=== PATIENT | male | born 2005 | race Caucasian/White ===

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

== ENCOUNTER 2023-08-01 08:15 | Emergency (ER) | payer OTHER ==
[2023-08-01 08:29] VITALS: TEMP 97.6
[2023-08-01 09:21] LABS: Basophils # (A) 0.1 k/uL (0-0.2); Basophils % (A) 1 %; Eosinophils # (A) 0.1 k/uL (0-0.7); Eosinophils % (A) 2 %; HCT 46.3 % (39.0-53.0); HGB 15.5 gm/dL (13.0-17.5); Lymphocytes # (A) 1.9 k/uL (1.0-4.8); Lymphocytes % (A) 30 %; MCH 30.2 pg (25.0-35.0); MCHC 33.5 g/dL (31.0-37.0); Monocytes # (A) 0.5 k/uL (0-1.0); Monocytes % (A) 7 %; Neutrophils # (A) 3.6 k/uL (1.3-7.7); Neutrophils % (A) 57 %; Platelet Count 284 k/uL (150-450); RBC 5.14 m/uL (4.30-5.90); RDW 12.7 % (11.5-15.5); WBC 6.3 k/uL (4.0-11.0)
[2023-08-01 09:32] LABS: ALT 35 U/L (4-49); AST 33 U/L (17-59); African American GFR (CKD) >90 (>60 ml/min/1.73 sqM); Albumin 4.3 g/dL (3.5-5.0); Alkaline Phosphatase 60 U/L (38-126); Amylase 47 U/L (30-110); Anion Gap 10 mmol/L; Blood Urea Nitrogen 13 mg/dL (9-20); Calcium 9.7 mg/dL (8.4-10.2); Carbon Dioxide 26 mmol/L (22-30); Chloride 103 mmol/L (98-107); Glucose 101 mg/dL (74-99); Lipase 124 U/L (23-300); Non-African American GFR(CKD) >90 (>60 ml/min/1.73 sqM); Potassium 4.5 mmol/L (3.5-5.1); Sodium 139 mmol/L (137-145); Total Bilirubin 1.5 mg/dL (0.2-1.3); Total Protein 6.9 g/dL (6.3-8.2)
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
[2023-08-01 11:05] VITALS: BP 118/81; PULSE 105; RESP 58
== END 2023-08-01 10:59 | disposition home or self-care (01) ==
LOC: EC 08:15
DX: K62.5 Hemorrhage of anus and rectum (principal); J45.909 Unspecified asthma, uncomplicated; Z88.0 Allergy status to penicillin; Z88.2 Allergy status to sulfonamides; Z79.899 Other long term (current) drug therapy; V49.40XA Driver injured in collision with unspecified motor vehicles in traffic accident, initial encounter
CPT/HCPCS: 36415; 80053; 82150; 83605; 83690; 85025; 74177; 99284; Q9967

== ENCOUNTER 2023-08-28 21:13 | Observation (INO) | payer OTHER ==
[2023-08-28] MEDS ORDERED: KETOROLAC 15 MG/ML 1 ML VIAL IVP STA (22:03)
[2023-08-28] MEDS ORDERED: SODIUM CHLORIDE 0.9% 1,000 ML IV STA (22:03)
[2023-08-28] MEDS ORDERED: ONDANSETRON 4 MG/2 ML VIAL IVP STA (22:03)
--- NOTE | 2023-08-28 22:42 | ED ---
Abdominal Pain HPI - General Chief Complaint: Abdominal Pain Stated Complaint: Lower abd pain Time Seen by Provider: 08/28/23 21:28 Source: patient Mode of arrival: ambulatory Limitations: no limitations - History of Present Illness Initial Comments: 18 Year-old male with no significant past medical history presented to the ED with a chief complaint of abdominal pain. Patient states last night started to experience diffuse abdominal pain. Patient states pain is waxing and waning in nature. No associated nausea with this. No changes in bowel or bladder habits. No chest pain or shortness of breath. Denies fever or chills. No other complaints. - Related Data Home Medications Medication Instructions Recorded Confirmed Albuterol Inhaler [Ventolin Hfa 2 puff INHALATION RT-Q6H PRN 01/24/19 11/26/22 Inhaler] Ascorbic Acid [Vitamin C] 1,000 mg PO DAILY 11/26/22 11/26/22 Lisdexamfetamine Dimesylate 40 mg PO DAILY 11/26/22 11/26/22 [Vyvanse] Melatonin 15 mg PO HS 11/26/22 11/26/22 Allergies Allergy/AdvReac Type Severity Reaction Status Date / Time cephalexin monohydrate AdvReac Rash/Hives Verified 08/28/23 21:24 [From Keflex] Penicillins AdvReac Rash/Hives Verified 08/28/23 21:24 sulfamethoxazole AdvReac Rash/Hives Verified 08/28/23 21:24 [From Bactrim] trimethoprim [From Bactrim] AdvReac Rash/Hives Verified 08/28/23 21:24 Review of Systems ROS Statement: Those systems with pertinent positive or pertinent negative responses have been documented in the HPI. ROS Other: All systems not noted in ROS Statement are negative. Past Medical History Past Medical History: Asthma, GERD/Reflux Additional Past Medical History / Comment(s): See Dr Ng's H&P, had crystals in recent UA, 00seasonal allergies, EAR INFECTIONS History of Any Multi-Drug Resistant Organisms: None Reported Past Surgical History: Adenoidectomy, Ear Surgery, Tonsillectomy Past Anesthesia/Blood Transfusion Reactions: No Reported Reaction Additional Past Anesthesia/Blood Transfusion Reaction / Comment(s): no hx blood transfusion Past Psychological History: ADD/ADHD Smoking Status: Never smoker Past Alcohol Use History: None Reported Past Drug Use History: None Reported - Past Family History Mother Family Medical History: No Reported History Father Family Medical History: Pulmonary Embolus General Exam Limitations: no limitations General appearance: alert, in no apparent distress Eye exam: Present: normal appearance Respiratory exam: Present: normal lung sounds bilaterally Cardiovascular Exam: Present: regular rate, normal rhythm GI/Abdominal exam: Present: soft (abdominal tenderness to palpation worsen the right lower quadrant. Positive psoas and rovsig sign. ) Neurological exam: Present: alert, oriented X3 Skin exam: Present: warm, dry Course Vital Signs 08/28/23 21:22 Temperature 97.7 F Pulse Rate 97 Respiratory 18 Rate Blood Pressure 124/72 O2 Sat by Pulse 95 Oximetry Medical Decision Making - Medical Decision Making Was pt. sent in by a medical professional or institution (Dr. PA, MERCHANDISER RETAIL REPRESENTATIVE, urgent care, hospital, or custodial...) When possible be specific @ -No Did you speak to anyone other than the patient for history (EMS, parent, family, police, friend...)? What history was obtained from this source @ -No Did you review nursing and triage notes (agree or disagree)? Why? @ -I reviewed and agree with nursing and triage notes Were old charts reviewed (outside hosp., previous admission, EMS record, old EKG, old radiological studies, urgent care reports/EKG's, custodial records)? Report findings @ -No old charts were reviewed Differential Diagnosis (chest pain, altered mental status, abdominal pain women, abdominal pain men, vaginal bleeding, weakness, fever, dyspnea, syncope, headache, dizziness, GI bleed, back pain, seizure, CVA, palpatations, mental health, musculoskeletal)? @ -Differential Abdominal Pain Men: Appendicitis, cholecystitis, diverticulosis, ischemic bowel, pancreatitis, hepatitis, UTI, gastroenteritis, AAA, incarcerated hernia, bowel obstruction, constipation, inflammatory bowel, hepatitis, peptic ulcer disease, splenic infarction, perforated viscus, testicular torsion, this is not meant to be an all-inclusive list EKG interpreted by me (3pts min.). @ -None X-rays interpreted by me (1pt min.). @ -None done CT interpreted by me (1pt min.). @ -CT interpreted by me showing evidence of acute appendicitis. U/S interpreted by me (1pt. min.). @ -None done What testing was considered but not performed or refused? (CT, X-rays, U/S, labs)? Why? @ -None What meds were considered but not given or refused? Why? @ -None Did you discuss the management of the patient with other professionals (professionals i.e. , PA, MERCHANDISER RETAIL REPRESENTATIVE, lab, RT, psych nurse, social director, dairy farm operator, teacher, ship's officer, protective services case worker)? Give summary @ -Case discussed with Dr. Godoy, who accepts admission. Advised clear liquid okay. Was smoking cessation discussed for >3mins.? @ -No Was critical care preformed (if so, how long)? @ -No Were there social determinants of health that impacted care today? How? (Homelessness, low income, unemployed, alcoholism, drug addiction, transportation, low edu. Level, literacy, decrease access to med. care, nursing home, rehab)? @ -No Was there de-escalation of care discussed even if they declined (Discuss DNR or withdrawal of care, Hospice)? DNR status @ -No What co-morbidities impacted this encounter? (DM, HTN, Smoking, COPD, CAD, Cancer, CVA, ARF, Chemo, Hep., AIDS, mental health diagnosis, sleep apnea, mor bid obesity)? @ -None Was patient admitted / discharged? Hospital course, mention meds given and route, prescriptions, significant lab abnormalities, going to OR and other pertinent info. @ -Admission 18-year-old male presenting to the ED with 2 days of abdominal pain and some nausea as well. Laboratory studies reviewed. CBC significant for a white blood cell count 14.4. Neutrophils elevated at 12.1. Chemistry and serology panel unremarkable. CT shows evidence of acute appendicitis without evidence of rupture or abscess formation. Patient will be admitted to surgical services. Undiagnosed new problem with uncertain prognosis? @ -No Drug Therapy requiring intensive monitoring for toxicity (Heparin, Nitro, Insulin, Cardizem)? @ -No Were any procedures done? @ -No Diagnosis/symptom? @ -Acute appendicitis Acute, or Chronic, or Acute on Chronic? @ -Acute Uncomplicated (without systemic symptoms) or Complicated (systemic symptoms)? @ -Complicated Side effects of treatment? @ -No Exacerbation, Progression, or Severe Exacerbation? @ -No Poses a threat to life or bodily function? How? (Chest pain, USA, SC, pneumonia, PE, COPD, DKA, ARF, appy, cholecystitis, CVA, Diverticulitis, Homicidal, Suicidal, threat to staff... and all critical care pts) @ -No - Lab Data Result diagrams: 08/28/23 22:44 08/28/23 22:44 Lab Results 08/28/23 08/28/23 08/28/23 Range/Units 22:44 22:44 22:44 WBC 14.4 H (4.0-11.0) k/uL RBC 5.16 (4.30-5.90) m/uL Hgb 15.8 (13.0-17.5) gm/dL Hct 45.4 (39.0-53.0) % MCV 88.0 (80.0-100.0) fL MCH 30.6 (25.0-35.0) pg MCHC 34.7 (31.0-37.0) g/dL RDW 12.2 (11.5-15.5) % Plt Count 260 (150-450) k/uL MPV 7.7 Neutrophils % 84 % Lymphocytes % 9 % Monocytes % 6 % Eosinophils % 1 % Basophils % 0 % Neutrophils # 12.1 H (1.3-7.7) k/uL Lymphocytes # 1.3 (1.0-4.8) k/uL Monocytes # 0.8 (0-1.0) k/uL Eosinophils # 0.2 (0-0.7) k/uL Basophils # 0.0 (0-0.2) k/uL Sodium 138 (137-145) mmol/L Potassium 4.5 (3.5-5.1) mmol/L Chloride 105 (98-107) mmol/L Carbon Dioxide 23 (22-30) mmol/L Anion Gap 10 mmol/L BUN 12 (9-20) mg/dL Creatinine 0.94 (0.66-1.25) mg/dL Est GFR (CKD-EPI)AfAm >90 (>60 ml/min/1.73 sqM) Est GFR (CKD-EPI)NonAf >90 (>60 ml/min/1.73 sqM) Glucose 101 H (74-99) mg/dL Plasma Lactic Acid Tony 0.9 (0.7-2.0) mmol/L Calcium 9.2 (8.4-10.2) mg/dL Total Bilirubin 1.3 (0.2-1.3) mg/dL AST 22 (17-59) U/L ALT 28 (4-49) U/L Alkaline Phosphatase 60 (38-126) U/L Total Protein 7.1 (6.3-8.2) g/dL Albumin 4.6 (3.5-5.0) g/dL Amylase 55 (30-110) U/L Lipase 126 (23-300) U/L Influenza Type A (PCR) (Not Detectd) Influenza Type B (PCR) (Not Detectd) RSV (PCR) (Not Detectd) SARS-CoV-2 (PCR) (Not Detectd) 08/28/23 Range/Units 22:44 WBC (4.0-11.0) k/uL RBC (4.30-5.90) m/uL Hgb (13.0-17.5) gm/dL Hct (39.0-53.0) % MCV (80.0-100.0) fL MCH (25.0-35.0) pg MCHC (31.0-37.0) g/dL RDW (11.5-15.5) % Plt Count (150-450) k/uL MPV Neutrophils % % Lymphocytes % % Monocytes % % Eosinophils % % Basophils % % Neutrophils # (1.3-7.7) k/uL Lymphocytes # (1.0-4.8) k/uL Monocytes # (0-1.0) k/uL Eosinophils # (0-0.7) k/uL Basophils # (0-0.2) k/uL Sodium (137-145) mmol/L Potassium (3.5-5.1) mmol/L Chloride (98-107) mmol/L Carbon Dioxide (22-30) mmol/L Anion Gap mmol/L BUN (9-20) mg/dL Creatinine (0.66-1.25) mg/dL Est GFR (CKD-EPI)AfAm (>60 ml/min/1.73 sqM) Est GFR (CKD-EPI)NonAf (>60 ml/min/1.73 sqM) Glucose (74-99) mg/dL Plasma Lactic Acid Tony (0.7-2.0) mmol/L Calcium (8.4-10.2) mg/dL Total Bilirubin (0.2-1.3) mg/dL AST (17-59) U/L ALT (4-49) U/L Alkaline Phosphatase (38-126) U/L Total Protein (6.3-8.2) g/dL Albumin (3.5-5.0) g/dL Amylase (30-110) U/L Lipase (23-300) U/L Influenza Type A (PCR) Not Detected (Not Detectd) Influenza Type B (PCR) Not Detected (Not Detectd) RSV (PCR) Not Detected (Not Detectd) SARS-CoV-2 (PCR) Not Detected (Not Detectd) Disposition Clinical Impression: Acute appendicitis Disposition: ADMITTED IP TO THIS HOSP Condition: Good Referrals: Trisha Garg MD [Primary Care Provider] - 1-2 days
[2023-08-28 22:56] LABS: Basophils % (A) 0 %; Eosinophils # (A) 0.2 k/uL (0-0.7); Eosinophils % (A) 1 %; HCT 45.4 % (39.0-53.0); HGB 15.8 gm/dL (13.0-17.5); Lymphocytes # (A) 1.3 k/uL (1.0-4.8); Lymphocytes % (A) 9 %; MCH 30.6 pg (25.0-35.0); MCHC 34.7 g/dL (31.0-37.0); Mean Platelet Volume 7.7; Monocytes # (A) 0.8 k/uL (0-1.0); Monocytes % (A) 6 %; Neutrophils # (A) 12.1 k/uL (1.3-7.7); Neutrophils % (A) 84 %; Platelet Count 260 k/uL (150-450); RBC 5.16 m/uL (4.30-5.90); RDW 12.2 % (11.5-15.5); WBC 14.4 k/uL (4.0-11.0)
[2023-08-28 23:08] LABS: ALT 28 U/L (4-49); AST 22 U/L (17-59); African American GFR (CKD) >90 (>60 ml/min/1.73 sqM); Albumin 4.6 g/dL (3.5-5.0); Alkaline Phosphatase 60 U/L (38-126); Amylase 55 U/L (30-110); Anion Gap 10 mmol/L; Blood Urea Nitrogen 12 mg/dL (9-20); Calcium 9.2 mg/dL (8.4-10.2); Carbon Dioxide 23 mmol/L (22-30); Chloride 105 mmol/L (98-107); Glucose 101 mg/dL (74-99); Lipase 126 U/L (23-300); Non-African American GFR(CKD) >90 (>60 ml/min/1.73 sqM); Potassium 4.5 mmol/L (3.5-5.1); Sodium 138 mmol/L (137-145); Total Bilirubin 1.3 mg/dL (0.2-1.3); Total Protein 7.1 g/dL (6.3-8.2)
--- NOTE | 2023-08-28 23:59 | CT ---
EXAM: CT Abdomen and Pelvis With Intravenous Contrast CLINICAL HISTORY: CT Reason: r/o appy TECHNIQUE: Axial computed tomography images of the abdomen and pelvis with intravenous contrast. CTDI is 36.9 mGy and DLP is 1980.1 mGy-cm. This CT exam was performed using one or more of the following dose reduction techniques: automated exposure control, adjustment of the mA and/or kV according to patient size, and/or use of iterative reconstruction technique. COMPARISON: No relevant prior studies available. FINDINGS: Lung bases: Unremarkable. No mass. No consolidation. ABDOMEN: Liver: Unremarkable. No mass. Gallbladder and bile ducts: Unremarkable. No calcified stones. No ductal dilation. Pancreas: Unremarkable. No mass. No ductal dilation. Spleen: Unremarkable. No splenomegaly. Adrenals: Unremarkable. No mass. Kidneys and ureters: Unremarkable. No solid mass. No hydronephrosis. Stomach and bowel: Unremarkable. No obstruction. No mucosal thickening. PELVIS: Appendix: The appendix is directed medially into the pelvis and dilated to 13 mm with surrounding inflammation characteristic of acute appendicitis. There is a trace amount of free fluid in the pelvis. No signs of rupture or abscess. Bladder: Unremarkable. No mass. Reproductive: Unremarkable as visualized. ABDOMEN and PELVIS: Intraperitoneal space: See above. Bones/joints: No acute fracture. No dislocation. Soft tissues: Unremarkable. Vasculature: Unremarkable. No abdominal aortic aneurysm. Lymph nodes: Unremarkable. No enlarged lymph nodes. IMPRESSION: The appendix is directed medially into the pelvis and dilated to 13 mm with surrounding inflammation characteristic of acute appendicitis. There is a trace amount of free fluid in the pelvis. No signs of rupture or abscess. <MYCVCSECTION> Communications: 08/29/23 00:03 Call Doctor Regarding Appendicitis, called JIMMY Krause on 08/29 00:03 (-05:00)
[2023-08-29] MEDS ORDERED: NALOXONE 0.4 MG/ML 1 ML VIAL IV PRN (00:49)
[2023-08-29] MEDS ORDERED: HYDROmorphone 1 MG/ML 1 ML SYRINGE IVP PRN ×2 (00:50→15:05)
[2023-08-29] MEDS ORDERED: HYDROmorphone 0.5 MG/0.5 ML SYRINGE IVP PRN (00:50)
[2023-08-29] MEDS ORDERED: ONDANSETRON 4 MG/2 ML VIAL IVP PRN ×2 (00:50→15:05)
[2023-08-29] MEDS: SODIUM CHLORIDE 0.9% 1,000 ML IV SCH ×2 (07:43→14:01)
[2023-08-29] MEDS: LEVOFLOXACIN 500MG-D5W PMX 500 MG in DEXTROSE/WATER 1 100ML.BAG IVPB SCH (09:14)
[2023-08-29] MEDS: metroNIDAZOLE-NS PMX 500 MG in SALINE 1 100ML.BAG IVPB SCH ×2 (11:10→17:30)
--- NOTE | 2023-08-29 12:24 | P.GSHP ---
History of Present Illness H&P Date: 08/29/23 CHIEF COMPLAINT: Abdominal pain HISTORY OF PRESENT ILLNESS: This is a 18-year-old male who presented with right lower quadrant abdominal pain 2 days. Patient reports initially the abdominal pain started at his belly button and has moved to the right lower quadrant. On he did have nausea. He denies any fevers. Denies any past surgical history. His computed tomography scan did show evidence of acute appendicitis. Lab work did show leukocytosis. Patient admitted for acute appendicitis. PAST MEDICAL HISTORY: Asthma, GERD, ADHD PAST SURGICAL HISTORY: See below MEDICATIONS: See below ALLERGIES: See below SOCIAL HISTORY: No illicit drug use. REVIEW OF SYSTEMS: CONSTITUTIONAL: Denies fever or chills. HEENT: Denies blurred vision, vision changes, or eye pain. Denies hemoptysis CARDIOVASCULAR: Denies chest pain or pressure. RESPIRATORY: No shortness of breath. GASTROINTESTINAL: See HPI for pertinent findings HEMATOLOGIC: Denies bleeding disorders. GENITOURINARY: Denies any blood in urine or increased urinary frequency. SKIN: Denies pruitis. Denies rash. PHYSICAL EXAM: VITAL SIGNS: Reviewed GENERAL: Well-developed in no acute distress. HEENT: No sclera icterus. Extraocular movements grossly intact. Moist buccal mucosa. Head is atraumatic, normocephalic. No nasal drainage. ABDOMEN: Soft. Nondistended. Tenderness with palpation to right lower quadrant. NEUROLOGIC: Alert and oriented. Cranial nerves II through XII grossly intact. LABORATORY DATA: WBC 14.4 Hgb 15.8 platelets 260 Sodium 138 potassium 4.5 creatinine 0.94 IMAGING: Computed tomography scan of the appendix is elected medially into the pelvis and dilated to 13 mm with surrounding inflammation characteristic of acute appendicitis. There is trace amount of free fluid in the pelvis. No signs of rupture or abscess. ASSESSMENT: 1. Acute appendicitis PLAN: -Patient scheduled for laparoscopic appendectomy today with Dr. roy -Keep patient nothing by mouth -Continue antibiotics -Continue supportive care Physician Float Builder note has been reviewed by physician. Signing provider agrees with the documented findings, assessment, and plan of care. Past Medical History Past Medical History: Asthma, GERD/Reflux Additional Past Medical History / Comment(s): See Dr Ng's H&P, had crystals in recent UA, 00seasonal allergies, EAR INFECTIONS, orthostatic hypotension History of Any Multi-Drug Resistant Organisms: None Reported Past Surgical History: Adenoidectomy, Ear Surgery, Tonsillectomy Past Anesthesia/Blood Transfusion Reactions: No Reported Reaction Additional Past Anesthesia/Blood Transfusion Reaction / Comment(s): no hx blood transfusion Past Psychological History: ADD/ADHD Additional Psychological History / Comment(s): adhd Smoking Status: Never smoker Past Alcohol Use History: None Reported Past Drug Use History: None Reported - Past Family History Mother Family Medical History: No Reported History Father Family Medical History: Pulmonary Embolus Medications and Allergies Home Medications Medication Instructions Recorded Confirmed Type Albuterol Nebulized [Ventolin 2.5 mg INHALATION RT-Q4H PRN 08/29/23 08/29/23 History Nebulized] Budesonide [Pulmicort] 0.5 mg INHALATION RT-BID 08/29/23 08/29/23 History EPINEPHrine (Auto Inject) [Epipen] 0.3 mg IM ONCE PRN 08/29/23 08/29/23 History Lisdexamfetamine Dimesylate 50 mg PO DAILY 08/29/23 08/29/23 History [Vyvanse] Midodrine [ProAmatine] 5 mg PO AC-BID 08/29/23 08/29/23 History Allergies Allergy/AdvReac Type Severity Reaction Status Date / Time cephalexin monohydrate AdvReac Rash/Hives Verified 08/29/23 07:02 [From Keflex] Penicillins AdvReac Rash/Hives Verified 08/29/23 07:05 sulfamethoxazole AdvReac Rash/Hives Verified 08/29/23 07:05 [From Bactrim] trimethoprim [From Bactrim] AdvReac Rash/Hives Verified 08/29/23 07:05 Surgical - Exam Vital Signs Temp Pulse Resp BP Pulse Ox 97.7 F 97 18 124/72 95 08/28/23 21:22 08/28/23 21:22 08/28/23 21:22 08/28/23 21:22 08/28/23 21:22 Results - Labs 08/28/23 22:44 08/28/23 22:44 Abnormal Lab Results - Last 24 Hours (Table) 08/28/23 08/28/23 Range/Units 22:44 22:44 WBC 14.4 H (4.0-11.0) k/uL Neutrophils # 12.1 H (1.3-7.7) k/uL Glucose 101 H (74-99) mg/dL Diabetes panel 08/28/23 Range/Units 22:44 Sodium 138 (137-145) mmol/L Potassium 4.5 (3.5-5.1) mmol/L Chloride 105 (98-107) mmol/L Carbon Dioxide 23 (22-30) mmol/L BUN 12 (9-20) mg/dL Creatinine 0.94 (0.66-1.25) mg/dL Glucose 101 H (74-99) mg/dL Calcium 9.2 (8.4-10.2) mg/dL AST 22 (17-59) U/L ALT 28 (4-49) U/L Alkaline Phosphatase 60 (38-126) U/L Total Protein 7.1 (6.3-8.2) g/dL Albumin 4.6 (3.5-5.0) g/dL Calcium panel 08/28/23 Range/Units 22:44 Calcium 9.2 (8.4-10.2) mg/dL Albumin 4.6 (3.5-5.0) g/dL Pituitary panel 08/28/23 Range/Units 22:44 Sodium 138 (137-145) mmol/L Potassium 4.5 (3.5-5.1) mmol/L Chloride 105 (98-107) mmol/L Carbon Dioxide 23 (22-30) mmol/L BUN 12 (9-20) mg/dL Creatinine 0.94 (0.66-1.25) mg/dL Glucose 101 H (74-99) mg/dL Calcium 9.2 (8.4-10.2) mg/dL Adrenal panel 08/28/23 Range/Units 22:44 Sodium 138 (137-145) mmol/L Potassium 4.5 (3.5-5.1) mmol/L Chloride 105 (98-107) mmol/L Carbon Dioxide 23 (22-30) mmol/L BUN 12 (9-20) mg/dL Creatinine 0.94 (0.66-1.25) mg/dL Glucose 101 H (74-99) mg/dL Calcium 9.2 (8.4-10.2) mg/dL Total Bilirubin 1.3 (0.2-1.3) mg/dL AST 22 (17-59) U/L ALT 28 (4-49) U/L Alkaline Phosphatase 60 (38-126) U/L Total Protein 7.1 (6.3-8.2) g/dL Albumin 4.6 (3.5-5.0) g/dL
[2023-08-29] MEDS ORDERED: SODIUM CHLORIDE 0.9% 1,000 ML IV ONE (14:01)
[2023-08-29] MEDS ORDERED: ONDANSETRON 4 MG/2 ML VIAL IVP ONE (14:07)
[2023-08-29] MEDS ORDERED: HEPARIN SODIUM,PORCINE 5,000 UNIT/ML 1 ML VIAL SQ ONE (14:10)
[2023-08-29] MEDS ORDERED: GLYCOPYRROLATE 0.2 MG/ML 2 ML VIAL ONE (14:19)
[2023-08-29] MEDS ORDERED: MIDAZOLAM 2 MG/2 ML VIAL ONE (14:19)
[2023-08-29] MEDS ORDERED: NEOSTIGMINE 1 MG/ML 10 ML VIAL ONE (14:19)
[2023-08-29] MEDS ORDERED: ALBUTEROL HFA INHALER INHALATION ONE (14:19)
[2023-08-29] MEDS ORDERED: LIDOCAINE 1% INJ 10MG/ML (20 ML MDV) ONE (14:19)
[2023-08-29] MEDS ORDERED: PROPOFOL 10 MG/ML 20 ML VIAL IV ONE (14:19)
[2023-08-29] MEDS ORDERED: fentaNYL (PF) 50 MCG/ML 2 ML AMP ONE (14:19)
[2023-08-29] MEDS ORDERED: ROCURONIUM 10 MG/ML (5 ML VIAL) IV ONE (14:19)
[2023-08-29] MEDS ORDERED: SUCCINYLCHOLINE CHLORIDE 200 MG/10 ML VIAL IV ONE (14:19)
[2023-08-29] MEDS ORDERED: SODIUM CHLORIDE 0.9% 50 ML with ceFAZolin 2,000 MG IV ONE ×2 (14:44)
[2023-08-29] MEDS ORDERED: BUPIVACAINE (PF) 0.25% 30 ML VIAL SQ ONE (14:45)
[2023-08-29] MEDS ORDERED: HYDROcodone/APAP 7.5-325MG 1 EACH TAB PO PRN (15:05)
--- NOTE | 2023-08-29 15:05 | P.OP ---
Date of Procedure: 08/29/23 Preoperative Diagnosis: Acute appendicitis Postoperative Diagnosis: Acute appendicitis Procedure(s) Performed: Laparoscopic appendectomy Anesthesia: CALISTA Surgeon: Dewayne Raya Estimated Blood Loss (ml): 5 Pathology: other (Appendix) Condition: stable Disposition: PACU Description of Procedure: The patient's placed on the operating table in the supine position. The patient received general anesthesia. The abdomen was prepped and draped in the usual sterile fashion. The skin was anesthetized 1% local Xylocaine at the trocar sites. Using an 11 blade the skin was incised at the umbilicus. The umbilicus was grasped with a Crowder clamp and then a Veress needle was placed into the peritoneal cavity. Position of the Veress needle was confirmed with positive drop test. After adequate insufflation a 5 mm trocar was placed into the peritoneal cavity. The abdomen was further insufflated. And then the laparoscope was placed in the peritoneal cavity. Next a 5 mm trocar was placed in the midline suprapubic position. And then a 10 mm trocar was placed in the midline epigastric position. The patient was rotated with the right side up and in Trendelenburg. The appendix was visualized. The appendix appeared to be inflamed. The appendix was grasped and then using the Harmonic scissors the mesoappendix was divided. A PDS Endoloop was then placed around the base of the appendix. And then the appendix was divided using Harmonic scissors. The appendix was placed into an Endo Catch and brought out through the 10 mm trocar site. The abdomen was irrigated. There is no bleeding seen. The trochars withdrawn. The skin was closed interrupted 3-0 Monocryl suture. Dermabond dressing was applied. Patient was sent to recovery room in stable condition.
[2023-08-29] MEDS ORDERED: HYDROmorphone 0.5 MG/0.5 ML SYRINGE IVP ONE (15:39)
[2023-08-30] MEDS: SODIUM CHLORIDE 0.9% 1,000 ML IV SCH ×2 (02:29→12:37)
[2023-08-30] MEDS: metroNIDAZOLE-NS PMX 500 MG in SALINE 1 100ML.BAG IVPB SCH ×2 (02:29→09:49)
[2023-08-30 08:56] LABS: Basophils % (A) 0 %; Eosinophils # (A) 0.1 k/uL (0-0.7); Eosinophils % (A) 1 %; HCT 40.1 % (39.0-53.0); HGB 13.6 gm/dL (13.0-17.5); Lymphocytes # (A) 1.3 k/uL (1.0-4.8); Lymphocytes % (A) 13 %; MCH 30.5 pg (25.0-35.0); MCHC 33.9 g/dL (31.0-37.0); MCV 90.2 fL (80.0-100.0); Mean Platelet Volume 7.8; Monocytes # (A) 0.5 k/uL (0-1.0); Monocytes % (A) 5 %; Neutrophils # (A) 8.1 k/uL (1.3-7.7); Neutrophils % (A) 80 %; Platelet Count 269 k/uL (150-450); RBC 4.45 m/uL (4.30-5.90); RDW 12.1 % (11.5-15.5); WBC 10.2 k/uL (4.0-11.0)
[2023-08-30 09:30] VITALS: PULSE 71
[2023-08-30] MEDS: LEVOFLOXACIN 500MG-D5W PMX 500 MG in DEXTROSE/WATER 1 100ML.BAG IVPB SCH (09:49)
--- NOTE | 2023-08-30 13:13 | P.DS ---
Providers Date of admission: 08/29/23 03:39 Expected date of discharge: 08/30/23 Attending physician: Terra Godoy Primary care physician: Trisha Garg [facility] Course: Discharge diagnosis 1. Acute appendicitis status post laparoscopic appendectomy Hospital course This is a 18-year-old male who presented with right lower quadrant abdominal pain 2 days. Patient reports initially the abdominal pain started at his belly button and has moved to the right lower quadrant. Computed tomography scan abdomen and pelvis which were evidence of acute appendicitis. Patient is status post laparoscopic appendectomy. His pain is controlled. He is tolerating diet. He has been up and ambulating. He is afebrile. He is stable for discharge. Please refer to chart for any further details. Physician Silk Screen Repairer note has been reviewed by physician. Signing provider agrees with the documented findings, assessment, and plan of care. Patient Condition at Discharge: Stable Plan - Discharge Summary New Discharge Prescriptions: New HYDROcodone/APAP 5-325MG [Luning 5-325] 1 tab PO Q6HR PRN 3 Days #12 tab PRN Reason: Pain Ibuprofen [Motrin] 600 mg PO Q8HR PRN #30 tab PRN Reason: Pain metroNIDAZOLE [Flagyl] 500 mg PO TID 10 Days #30 tab Levofloxacin [Levaquin] 500 mg PO DAILY 10 Days #10 tab Docusate [Colace] 100 mg PO BID #30 capsule Continue EPINEPHrine (Auto Inject) [Epipen] 0.3 mg IM ONCE PRN PRN Reason: Anaphylaxis Lisdexamfetamine Dimesylate [Vyvanse] 50 mg PO DAILY Budesonide [Pulmicort] 0.5 mg INHALATION RT-BID Albuterol Nebulized [Ventolin Nebulized] 2.5 mg INHALATION RT-Q4H PRN PRN Reason: Shortness Of Breath Midodrine [ProAmatine] 5 mg PO AC-BID Discharge Medication List Albuterol Nebulized [Ventolin Nebulized] 2.5 mg INHALATION RT-Q4H PRN 08/29/23 [History] Budesonide [Pulmicort] 0.5 mg INHALATION RT-BID 08/29/23 [History] EPINEPHrine (Auto Inject) [Epipen] 0.3 mg IM ONCE PRN 08/29/23 [History] Lisdexamfetamine Dimesylate [Vyvanse] 50 mg PO DAILY 08/29/23 [History] Midodrine [ProAmatine] 5 mg PO AC-BID 08/29/23 [History] Docusate [Colace] 100 mg PO BID #30 capsule 08/30/23 [Rx] HYDROcodone/APAP 5-325MG [Luning 5-325] 1 tab PO Q6HR PRN 3 Days #12 tab 08/30/23 [Rx] Ibuprofen [Motrin] 600 mg PO Q8HR PRN #30 tab 08/30/23 [Rx] Levofloxacin [Levaquin] 500 mg PO DAILY 10 Days #10 tab 08/30/23 [Rx] metroNIDAZOLE [Flagyl] 500 mg PO TID 10 Days #30 tab 08/30/23 [Rx] Follow up Appointment(s)/Referral(s): Trisha Garg MD [Primary Care Provider] - 1-2 days Dewayne Raya MD [STAFF PHYSICIAN] - 1 Week Activity/Diet/Wound Care/Special Instructions: No driving while taking Luning No lifting over 10 pounds Shower daily. No soaking or tub baths for 2 weeks Very light activity until you are reevaluated at your follow up appointment with your surgeon Discharge Disposition: HOME SELF-CARE
[2023-08-30 15:22] VITALS: BP 97/48; RESP 16; TEMP 98.2
== END 2023-08-30 16:49 | disposition home or self-care (01) ==
LOC: EC 21:13 → INTOOBSV 08-29 03:39 → 1SOBS 08-29 03:39
PROVIDERS: ADMIT Surgery Plastic and Reconstructive Surgery; ATTEND Surgery Plastic and Reconstructive Surgery
DX: K35.80 Unspecified acute appendicitis (principal); K66.0 Peritoneal adhesions (postprocedural) (postinfection); J45.909 Unspecified asthma, uncomplicated; I95.1 Orthostatic hypotension; K21.9 Gastro-esophageal reflux disease without esophagitis; F90.9 Attention-deficit hyperactivity disorder, unspecified type; Z11.52 Encounter for screening for COVID-19; Z11.59 Encounter for screening for other viral diseases; Z79.899 Other long term (current) drug therapy; Z88.0 Allergy status to penicillin; Z88.1 Allergy status to other antibiotic agents; Z88.2 Allergy status to sulfonamides; Z98.890 Other specified postprocedural states; Z82.49 Family history of ischemic heart disease and other diseases of the circulatory system
CPT/HCPCS: 96361 ×2; 96374; 96375; 99285; 93005; 88304; 80053; 82150; 83605; 83690; 85025 ×2; 87636; 74177; 44970; G0378; J2250; J0330; J1644; J2710; J2405 ×2; J0690; J1956 ×2; J2001; J3010; J1170 ×2; J1885; J2704; Q9967; J1836 ×2; J0665

== ENCOUNTER → 2023-09-21 | Outpatient (CLI) | payer OTHER ==
--- NOTE | 2023-09-21 09:46 | US ---
EXAMINATION TYPE: US kidneys/renal and bladder DATE OF EXAM: 09/21/2023 COMPARISON: 08/01/2023 CLINICAL INDICATION: Male, 18 years old with history of R10.30 LOWER ABD PAIN UNSPECIFIED; lower abd pain ongoing, no hematuria, no renal history, recent CT - kidneys normal EXAM MEASUREMENTS: Right Kidney: 11.8 x 5.5 x 5.3 cm Left Kidney: 11.9 x 5.1 x 6.2 cm Right Kidney: No hydronephrosis or masses seen Left Kidney: No hydronephrosis or masses seen Bladder: wnl Bilateral Jets seen: Yes There is no evidence for hydronephrosis at this point in time. No nephrolithiasis is seen. No milind s are identified. The urinary bladder is anechoic. Bilateral ureteral jets are seen. IMPRESSION: No evidence for obstructive uropathy or renal calculus.
== END | disposition home or self-care (01) ==
LOC: RADUSWWP 09:11
PROVIDERS: ATTEND Internal Medicine Geriatric Medicine
DX: R10.30 Lower abdominal pain, unspecified (principal)
CPT/HCPCS: 76770

== ENCOUNTER → 2023-10-27 | Outpatient (CLI) | payer OTHER ==
--- NOTE | 2023-10-27 14:07 | P.SLEEP ---
History of Present Illness DATE: 10/27/2023 CONSULTATION/NEW PATIENT EVALUATION HISTORY OF PRESENT ILLNESS/SLEEP-WAKE EVALUATION: 18-year-old gentleman had been evaluated in the sleep center for possible obstructive sleep apnea hypopnea syndrome. SLEEP SCHEDULE: Usually sleep schedule from 10:30 PM to 5 AM on weekdays and from 124 AM until 113 PM during the weekend. FALLING ASLEEP: Patient has difficulties with falling asleep, has TV set in bedroom. DURING SLEEP: Patient usually sleeps on the back and side position with snoring, grinding teeth. No history of hypnogogical hallucinations, sleep paralysis, or cataplexy. DURING THE DAY/WAKE STATE: In the morning patient wake up tired, has episodes of irritability. [place] sleepiness scale is 4. Usually patient does not take naps. PAST MEDICAL HISTORY: Hypertension, ADHD. PAST SURGICAL HISTORY: Tonsillectomy, appendectomy, ear tube insertion. MEDICATIONS: Vyvanse, midodrine. SOCIAL HISTORY: Negative for smoking or using alcohol. FAMILY HISTORY: Sleep apnea, asthma, diabetes, lung problems. REVIEW OF SYSTEMS: Snoring, feeling tiredness and sleepiness during the day. No fevers. No double vision. No recent chest pain. No shortness of breath. No abdominal pain. No bleeding episodes. No blood in urine. No seizure episodes. PHYSICAL EXAMINATION: GENERAL: A pleasant patient without any distress. VITAL SIGNS: Please see below. HEENT: PERRLA, EOMI. Evaluation of oropharynx showed tongue protrudes midline, low position of soft palate Mallampati 4. NECK: Supple. No JVD. Thyroid is not palpable. 16-1/4 inches in circumference. LUNGS: Clear to percussion and to auscultation. Good air exchange. No wheezing or rhonchi. HEART: S1, S2 regular. No murmurs, gallops or rubs. ABDOMEN: Soft and nontender. Bowel sounds are present. No organomegaly appreciated. EXTREMITIES: No clubbing or cyanosis. TELEGRAPH SERVICE CLERK: Awake, alert, and oriented x3. Cranial nerves 2 to 7 intact. There is no fasciculation or atrophy noted. No focal deficits observed. ASSESSMENT: 1. Snoring, extremely low position of soft palate Mallampati 4, borderline size of the neck. Possible obstructive sleep apnea hypopnea syndrome. 2. Obesity BMI 35.4. 3. History of ADHD. 4. History of hypotension. PLAN: 1. Polysomnography for evaluation of patient's breathing during sleep. 2. Following plan after reading sleep study. 3. Preferable position during sleep on the side. 4. No driving if patient feels any sleepiness. Patient is aware of civil and criminal liability for unsafe driving. 5. Sleep hygiene with regular sleep time for at least 7.5-8 hours. 6. Watching weight. Thank you very much for referring this patient for consultation. Sincerely, Oleg Aleman MD, PhD, FAASM. Diplomat of [place] [employer], Sleep Medicine Board by [place] [employer] Hazardous Waste Technician of [facility] [place] Past Medical History Past Medical History: Asthma, GERD/Reflux Additional Past Medical History / Comment(s): See Dr Ng's H&P, had crystals in recent UA, 00seasonal allergies, EAR INFECTIONS, orthostatic hypotension History of Any Multi-Drug Resistant Organisms: None Reported Past Surgical History: Adenoidectomy, Ear Surgery, Tonsillectomy Past Anesthesia/Blood Transfusion Reactions: No Reported Reaction Additional Past Anesthesia/Blood Transfusion Reaction / Comment(s): no hx blood transfusion Past Psychological History: ADD/ADHD Additional Psychological History / Comment(s): adhd Smoking Status: Never smoker Past Alcohol Use History: None Reported Past Drug Use History: None Reported - Past Family History Mother Family Medical History: No Reported History Father Family Medical History: Pulmonary Embolus Medications and Allergies Home Medications Medication Instructions Recorded Confirmed Type Albuterol Nebulized [Ventolin 2.5 mg INHALATION RT-Q4H PRN 08/29/23 08/29/23 History Nebulized] Budesonide [Pulmicort] 0.5 mg INHALATION RT-BID 08/29/23 08/29/23 History EPINEPHrine (Auto Inject) [Epipen] 0.3 mg IM ONCE PRN 08/29/23 08/29/23 History Lisdexamfetamine Dimesylate 50 mg PO DAILY 08/29/23 08/29/23 History [Vyvanse] Midodrine [ProAmatine] 5 mg PO AC-BID 08/29/23 08/29/23 History Docusate [Colace] 100 mg PO BID #30 capsule 08/30/23 Rx HYDROcodone/APAP 5-325MG [[place] 1 tab PO Q6HR PRN 3 Days #12 tab 08/30/23 Rx 5-325] Ibuprofen [Motrin] 600 mg PO Q8HR PRN #30 tab 08/30/23 Rx Levofloxacin [Levaquin] 500 mg PO DAILY 10 Days #10 tab 08/30/23 Rx metroNIDAZOLE [Flagyl] 500 mg PO TID 10 Days #30 tab 08/30/23 Rx Allergies Allergy/AdvReac Type Severity Reaction Status Date / Time cephalexin monohydrate AdvReac Rash/Hives Verified 08/29/23 07:02 [From Keflex] Penicillins AdvReac Rash/Hives Verified 08/29/23 07:05 sulfamethoxazole AdvReac Rash/Hives Verified 08/29/23 07:05 [From Bactrim] trimethoprim [From Bactrim] AdvReac Rash/Hives Verified 08/29/23 07:05 Sleep Note - Sleep Note Sleep Note: Temperature: Pulse Rate: Respiratory Rate: Blood Pressure: SpO2: Height: Weight: BMI: Neck Circumference:
[2023-10-27 17:29] VITALS: BP 113/64; PULSE 85; RESP 12; TEMP 98.1
== END ==
LOC: 3 N SLEEP 13:21
PROVIDERS: ATTEND Internal Medicine
DX: R06.83 Snoring (principal); E66.9 Obesity, unspecified; F90.9 Attention-deficit hyperactivity disorder, unspecified type; I10 Essential (primary) hypertension; I95.9 Hypotension, unspecified; Z68.35 Body mass index [BMI] 35.0-35.9, adult; Z88.1 Allergy status to other antibiotic agents; Z88.0 Allergy status to penicillin; Z88.2 Allergy status to sulfonamides; Z79.899 Other long term (current) drug therapy
CPT/HCPCS: 99211

== ENCOUNTER 2023-11-21 19:55 | Outpatient (CLI) | payer OTHER ==
--- NOTE | 2023-11-24 13:32 | P.PCN ---
Description of Procedure: POLYSOMNOGRAPHY REPORT PROCEDURE(S)/DATE(S): Polysomnography 11/21/2023 CLINICAL: Patient has been seen in the sleep center for evaluation of obstructive sleep apnea-hypopnea syndrome. Please see my consultation. Sleep study has been done for evaluation of patient breathing during the sleep. PROCEDURE: The standard montage for clinical polysomnography included the electroencephalogram, the electrooculogram, the mentalis surface electromyography and Lead II cardiography. The respiratory battery consisted of measurements of nasal/buccal air flow, pressure transducer measurements from nose, thoracic and/or abdominal effort and intercostal surface electromyography. Video monitoring has been done to check for any parasomnia events. Nocturnal oxyhemoglobin saturations were obtained by finger oximetry. Step-garcia titration with positive airway pressure was utilized to control the respiratory events, if necessary. RESULTS: During the diagnostic sleep study sleep efficiency was extremely low 32.5%. Latency to sleep onset was borderline 29.5 min. Sleep architecture showed stage NI was extremely high 36.2%, Delta sleep was in normal range 7.4%, REM sleep was absent 0%. Respiratory channel showed 5 obstructive apneas, 2 mixed apneas, 1 central apneas, 16 hypopneas with lowest oxygen level 87%. Total apnea hypopnea index was 10.2. Heart rate was in the range between 55 and 86, average 64. EMG showed 3.4 periodic limb movements per hour with 3.4 micro-arousals per hour. IMPRESSIONS: 1. Obstructive sleep apnea hypopnea syndrome. 2. No significant periodic limb movements have been documented. 3. Extremely low sleep efficiency. Please see other impressions from consultation PLAN: 1. The patient will have AutoPap treatment for correction of respiratory abnormalities during the sleep. 2. Losing weight program. 3. Sleep hygiene with regular time in bed for at least 7-1/2 hours. 4. No driving if feeling sleepiness. 5. I will see patient for follow-up visit to explain results of the test, check clinical response to treatment, compliance with treatment and [place] adjustments related to mask fitting pressure and humidification. Thank you very much for allowing me to participate in the management of your patient. Sincerely, Oleg Aleman MD, PhD, FAASM. Diplomat of [place] [employer], Sleep Medicine Board by [place] Unemployment Insurance Hearing Officer of [facility] [place] cc: Trisha Garg MD
== END 2023-11-22 05:50 | disposition home or self-care (01) ==
LOC: 3 N SLEEP 19:55
PROVIDERS: ATTEND Internal Medicine
DX: G47.33 Obstructive sleep apnea (adult) (pediatric) (principal); Z88.1 Allergy status to other antibiotic agents; Z88.0 Allergy status to penicillin; Z88.2 Allergy status to sulfonamides
CPT/HCPCS: 95810

== ENCOUNTER 2024-04-29 02:50 | Emergency (ER) | payer OTHER ==
[2024-04-29 03:50] LABS: Basophils # (A) 0.1 k/uL (0-0.2); Basophils % (A) 1 %; Eosinophils # (A) 0.2 k/uL (0-0.7); Eosinophils % (A) 2 %; HCT 46.8 % (39.0-53.0); HGB 15.6 gm/dL (13.0-17.5); Lymphocytes # (A) 2.6 k/uL (1.0-4.8); Lymphocytes % (A) 36 %; MCHC 33.3 g/dL (31.0-37.0); MCV 90.1 fL (80.0-100.0); Monocytes # (A) 0.6 k/uL (0-1.0); Monocytes % (A) 8 %; Neutrophils # (A) 3.7 k/uL (1.3-7.7); Neutrophils % (A) 51 %; Platelet Count 288 k/uL (150-450); RDW 12.3 % (11.5-15.5); WBC 7.2 k/uL (3.8-10.6)
[2024-04-29 04:02] LABS: ALT 24 U/L (4-49); AST 28 U/L (17-59); African American GFR (CKD) >90 (>60 ml/min/1.73 sqM); Albumin 4.5 g/dL (3.5-5.0); Alkaline Phosphatase 51 U/L (38-126); Anion Gap 9 mmol/L; Blood Urea Nitrogen 12 mg/dL (9-20); Calcium 9.5 mg/dL (8.4-10.2); Carbon Dioxide 29 mmol/L (22-30); Chloride 105 mmol/L (98-107); Glucose 99 mg/dL (74-99); Magnesium 1.9 mg/dL (1.6-2.3); Non-African American GFR(CKD) >90 (>60 ml/min/1.73 sqM); Potassium 4.2 mmol/L (3.5-5.1); Sodium 143 mmol/L (137-145)
[2024-04-29 04:20] LABS: Partial Thromboplastin Time 23.7 sec (22.0-30.0); Prothrombin Time 11.3 sec (10.0-12.5)
--- NOTE | 2024-04-29 05:20 | XR ---
EXAM: XR Chest, 2 Views CLINICAL HISTORY: Chest Pain TECHNIQUE: Frontal and lateral views of the chest. COMPARISON: No relevant prior studies available. FINDINGS: Lungs: Unremarkable. No consolidation. Pleural space: Unremarkable. Mediastinum: Unremarkable. Normal mediastinal contour. Bones/joints: No acute findings. IMPRESSION: No acute findings.
--- NOTE | 2024-04-29 05:52 | ED ---
Chest Pain HPI - General Chief Complaint: Chest Pain Stated Complaint: chest pain SOB Time Seen by Provider: 04/29/24 06:30 Source: patient Mode of arrival: wheelchair Limitations: no limitations - History of Present Illness Initial Comments: 19-year-old male presents emergency department reporting chest pain. States that he had a couple of alcoholic beverages with friends. He was sitting up on the couch watching TV when he had sudden onset of substernal chest pain. Described as a sharp sensation without radiation. He denies associated shortness of breath. He has no previous history of cardiac disease. Patient states that the more he thought about it the more worried he got and therefore decided to come into the hospital for evaluation. No calf pain or swelling. No recent travel. No fevers chills or cough. No other alleviating, precipitating modifying factors - Related Data Home Medications Medication Instructions Recorded Confirmed Albuterol Nebulized [Ventolin 2.5 mg INHALATION RT-Q4H PRN 08/29/23 08/29/23 Nebulized] Budesonide [Pulmicort] 0.5 mg INHALATION RT-BID 08/29/23 08/29/23 EPINEPHrine (Auto Inject) [Epipen] 0.3 mg IM ONCE PRN 08/29/23 08/29/23 Lisdexamfetamine Dimesylate 50 mg PO DAILY 08/29/23 08/29/23 [Vyvanse] Midodrine [ProAmatine] 5 mg PO AC-BID 08/29/23 08/29/23 Previous Rx's Medication Instructions Recorded Docusate [Colace] 100 mg PO BID #30 capsule 08/30/23 HYDROcodone/APAP 5-325MG [[place] 1 tab PO Q6HR PRN 3 Days #12 tab 08/30/23 5-325] Ibuprofen [Motrin] 600 mg PO Q8HR PRN #30 tab 08/30/23 Levofloxacin [Levaquin] 500 mg PO DAILY 10 Days #10 tab 08/30/23 metroNIDAZOLE [Flagyl] 500 mg PO TID 10 Days #30 tab 08/30/23 Omeprazole 20 mg PO DAILY #30 tab 04/29/24 Allergies Allergy/AdvReac Type Severity Reaction Status Date / Time cephalexin monohydrate AdvReac Rash/Hives Verified 04/29/24 02:51 [From Keflex] Penicillins AdvReac Rash/Hives Verified 04/29/24 02:51 sulfamethoxazole AdvReac Rash/Hives Verified 04/29/24 02:51 [From Bactrim] trimethoprim [From Bactrim] AdvReac Rash/Hives Verified 04/29/24 02:51 Review of Systems ROS Statement: Those systems with pertinent positive or pertinent negative responses have been documented in the HPI. ROS Other: All systems not noted in ROS Statement are negative. Past Medical History Past Medical History: Asthma, GERD/Reflux Additional Past Medical History / Comment(s): See Dr Ng's H&P, seasonal allergies, EAR INFECTIONS, orthostatic hypotension History of Any Multi-Drug Resistant Organisms: None Reported Past Surgical History: Adenoidectomy, Appendectomy, Ear Surgery, Tonsillectomy Past Anesthesia/Blood Transfusion Reactions: No Reported Reaction Additional Past Anesthesia/Blood Transfusion Reaction / Comment(s): no hx blood transfusion Past Psychological History: ADD/ADHD Smoking Status: Never smoker Past Alcohol Use History: None Reported Past Drug Use History: Marijuana - Past Family History Mother Family Medical History: No Reported History Father Family Medical History: Pulmonary Embolus General Exam Limitations: no limitations General appearance: alert, in no apparent distress Head exam: Present: atraumatic, normocephalic, normal inspection Eye exam: Present: normal appearance, PERRL, EOMI. Absent: scleral icterus, conjunctival injection, periorbital swelling ENT exam: Present: normal exam, mucous membranes moist Neck exam: Present: normal inspection. Absent: tenderness, meningismus, lymphadenopathy Respiratory exam: Present: normal lung sounds bilaterally. Absent: respiratory distress, wheezes, rales, rhonchi, stridor Cardiovascular Exam: Present: regular rate, normal rhythm, normal heart sounds. Absent: systolic murmur, diastolic murmur, rubs, gallop, clicks GI/Abdominal exam: Present: soft, normal bowel sounds. Absent: distended, tenderness, guarding, rebound, rigid Extremities exam: Present: normal inspection, full ROM, normal capillary refill. Absent: tenderness, pedal edema, joint swelling, calf tenderness Back exam: Present: normal inspection Neurological exam: Present: alert, oriented X3, CN II-XII intact Psychiatric exam: Present: normal affect, normal mood Skin exam: Present: warm, dry, intact, normal color. Absent: rash Course Vital Signs 04/29/24 06:30 Pulse Rate 90 Respiratory 16 Rate Blood Pressure 123/75 O2 Sat by Pulse 99 Oximetry Chest Pain MDM - MDM Was pt. sent in by a medical professional or institution ([facility], PEDIATRIC CARDIOLOGIST, urgent care, hospital, or intermediate...) When possible be specific @ -No Did you speak to anyone other than the patient for history (EMS, parent, family, police, friend...)? What history was obtained from this source @ -No Did you review nursing and triage notes (agree or disagree)? Why? @ -I reviewed and agree with nursing and triage notes Were old charts reviewed (outside hosp., previous admission, EMS record, old EKG, old radiological studies, urgent care reports/EKG's, intermediate records)? Report findings @ -No old charts were reviewed Differential Diagnosis (chest pain, altered mental status, abdominal pain women, abdominal pain men, vaginal bleeding, weakness, fever, dyspnea, syncope, headache, dizziness, GI bleed, back pain, seizure, CVA, palpatations, mental health, musculoskeletal)? @ -Differential Chest Pain: Stable Angina, Unstable Angina, STEMI, NSTEMI Aortic Dissection, Pneumothorax, Musculoskeletal, Esophageal Spasm GERD, Cholecystitis, Pancreatitis, Zoster, this is not meant to be an all-inclusive list. EKG interpreted by me (3pts min.). @ -Yes and demonstrates sinus rhythm with rate of 67. [place] interval 120. QRS 101. QTc of 380 X-rays interpreted by me (1pt min.). @ -Yes and demonstrates no acute process CT interpreted by me (1pt min.). @ -None done U/S interpreted by me (1pt. min.). @ -None done What testing was considered but not performed or refused? (CT, X-rays, U/S, labs)? Why? @ -None What meds were considered but not given or refused? Why? @ -None Did you discuss the management of the patient with other professionals (professionals i.e. [facility] T[facility]well, PEDIATRIC CARDIOLOGIST, lab, RT, psych nurse, social secretary, piercing mill operator, teacher, food safety officer, director of casework department)? Give summary @ -No Was smoking cessation discussed for >3mins.? @ -No Was critical care preformed (if so, how long)? @ -No Were there social determinants of health that impacted care today? How? (Homelessness, low income, unemployed, alcoholism, drug addiction, transportation, low edu. Level, literacy, decrease access to med. care, prison, rehab)? @ -No Was there de-escalation of care discussed even if they declined (Discuss DNR or withdrawal of care, Hospice)? DNR status @ -No What co-morbidities impacted this encounter? (DM, HTN, Smoking, COPD, CAD, Cance r, CVA, ARF, Chemo, Hep., AIDS, mental health diagnosis, sleep apnea, morbid obesity)? @ -None Was patient admitted / discharged? Hospital course, mention meds given and route, prescriptions, significant lab abnormalities, going to OR and other pertinent info. @ -Upon arrival patient seen and evaluated in room 12. Thorough history and physical exam was performed. Laboratory studies are conducted. Chest x-ray performed. No acute findings. Results are discussed with the patient. He will be discharged home at this time. Instructed follow-up with his doctor for an echo and return for any new or worsening symptoms. Patient agreeable and was discharged in stable condition Undiagnosed new problem with uncertain prognosis? @ -No Drug Therapy requiring intensive monitoring for toxicity (Heparin, Nitro, Insulin, Cardizem)? @ -No Were any procedures done? @ -No Diagnosis/symptom? @ -Acute chest pain Acute, or Chronic, or Acute on Chronic? @ -Acute Uncomplicated (without systemic symptoms) or Complicated (systemic symptoms)? @ -Complicated Side effects of treatment? @ -No Exacerbation, Progression, or Severe Exacerbation? @ -No Poses a threat to life or bodily function? How? (Chest pain, [place], [place], pneumonia, PE, COPD, DKA, ARF, appy, cholecystitis, CVA, Diverticulitis, Homicidal, Suicidal, threat to staff... and all critical care pts) @ -No Disposition Clinical Impression: Chest pain Disposition: HOME SELF-CARE Condition: Stable Instructions (If sedation given, give patient instructions): Chest Pain (ED) Additional Instructions: Your testing today was within normal limits. If your symptoms recur, you may need further testing. Please follow-up with your doctor in 2 to 4 days. Return for any new or worsening symptoms. Prescriptions: Omeprazole 20 mg PO DAILY #30 tab Is patient prescribed a controlled substance at d/c from ED?: No Referrals: Trisha Garg MD [Primary Care Provider] - 1-2 days Time of Disposition: 05:51
[2024-04-29 06:31] VITALS: BP 123/75; PULSE 90; RESP 16
== END 2024-04-29 06:31 | disposition home or self-care (01) ==
LOC: EC 02:50
DX: R07.9 Chest pain, unspecified (principal); R06.00 Dyspnea, unspecified; Z88.2 Allergy status to sulfonamides; Z88.1 Allergy status to other antibiotic agents
CPT/HCPCS: 36415; 71046; 80053; 83690; 83735; 84484; 85025; 85610; 85730; 93005; 99285